=== PATIENT | male | born 1980 | race Two or more races ===

== ENCOUNTER → 2024-09-10 | Emergency (ER) | payer OTHER ==
[~2024-09-10] VITALS: Ht 167.6 cm; Wt 68.0 kg
[~2024-09-10] MED LIST: CEFTRIAXONE SODIUM 1,000 MG VIAL IM STA; CEFTRIAXONE SODIUM 1,000 MG VIAL ONE; KETOROLAC TROMETHAMINE 60 MG VIAL IM ONE; KETOROLAC TROMETHAMINE 60 MG VIAL IM STA; LIDOCAINE HCL 1% 10ML VIAL ONE
== END | disposition home or self-care (01) ==
LOC: ER 09:43
DX: K04.7 Periapical abscess without sinus (principal)